=== PATIENT | male | born 1990 | race Two or more races ===

== ENCOUNTER 2023-04-25 13:13 | Emergency (ER) | payer OTHER ==
[~2023-04-25] VITALS: Ht 154.9 cm; Wt 70.3 kg
[2023-04-25] MEDS ORDERED: DUI500 PO (14:07)
== END 2023-04-25 14:16 | disposition home or self-care (01) ==
LOC: ER 13:13 → EDSEX 13:20 → ER 13:20
DX: H72.92 Unspecified perforation of tympanic membrane, left ear (principal)